=== PATIENT | male | born 1980 | race Asian ===

== ENCOUNTER 2017-08-07 01:01 | Emergency (ER) | payer SELFPAY ==
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
[2017-08-07 03:35] VITALS: BP 122/85
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
[2017-08-07] MEDS ORDERED: IBUPROFEN800 M1 PO (04:14)
== END 2017-08-07 04:42 ==
LOC: ERH 01:01
DX: S09.90XA Unspecified injury of head, initial encounter (principal); S29.8XXA Other specified injuries of thorax, initial encounter; Y04.8XXA Assault by other bodily force, initial encounter; Y92.9 Unspecified place or not applicable; Y93.89 Activity, other specified
CPT/HCPCS: 72100; 96372; J1885; J2405